=== PATIENT | male | born 1990 | race Asian ===

== ENCOUNTER 2019-01-03 20:33 | Emergency (ER) | payer OTHER ==
[~2019-01-03] VITALS: Ht 172.7 cm; Wt 93.9 kg
== END 2019-01-03 22:08 | disposition home or self-care (01) ==
LOC: ED 20:33
DX: Z77.098 Contact with and (suspected) exposure to other hazardous, chiefly nonmedicinal, chemicals (principal); Z87.891 Personal history of nicotine dependence
CPT/HCPCS: 99283